=== PATIENT | male | born 1935 | race Caucasian/White ===

== ENCOUNTER 2017-10-26 09:41 | Inpatient (IN) | payer MEDICARE, OTHER ==
[2017-10-26] MEDS: ALBUTEROL 0.083% (NEB) 2.5 MG/3 ML AMP HHN (10:15)
[2017-10-26 10:20] LABS: AADO2 Arterial 495.1 mmHg (7.0-24.0); Allen Test ACCEPTAB; Arterial Base Excess 3.2 mmol/L (-3.0-3); Arterial COHb 0.4 % (0.0-3.0); Arterial Fraction of Oxyhgb 98.4 % (93.0-99.0); Arterial HCO3 27.8 mmol/L (22.0-26.0); Arterial MetHb 0.2 % (0.0-1.5); Arterial pCO2 42.8 mmhg (35-45); MODE MASK - NRB; Site Left Radial
[2017-10-26] MEDS: SODIUM CHLORIDE 0.9% 1L BAG IV* (10:48)
[2017-10-26] MEDS: LEVOFLOXACIN 750MG/D5W (PMX) 150 ML IVPB (10:49)
[2017-10-26 10:54] LABS: WHITE BLOOD COUNT 13.6 10^3/ul (4.8-10.8)
[2017-10-26 10:54] LABS: HEMATOCRIT 35.2 % (42.0-52.0); HEMOGLOBIN 10.7 g/dl (14.0-18.0); MEAN CORPUSCULAR HEMOGLOBIN 25.9 pg (29.0-33.0); MEAN CORPUSCULAR HGB CONC 30.4 g/dl (32.0-37.0); MEAN CORPUSCULAR VOLUME 85.2 fl (82.0-101.0); PLATELET COUNT 349 10^3/UL (140-415); POSITIVE DIFF @See below; RED BLOOD COUNT 4.13 10^6/ul (4.70-6.10)
[2017-10-26 10:55] LABS: ADD MAN DIFF? YES
[2017-10-26 11:10] LABS: ALANINE AMINOTRANSFERASE 31 IU/L (13-69); ALBUMIN 3.6 g/dl (3.3-4.9); ALBUMIN/GLOBULIN RATIO 0.85; ALKALINE PHOSPHATASE 111 IU/L (42-121); ANION GAP 15 (8-16); ASPARTATE AMINO TRANSFERASE 25 IU/L (15-46); BILIRUBIN,INDIRECT 0.4 mg/dl (0-1.1); BILIRUBIN,TOTAL 0.4 mg/dl (0.2-1.3); BLOOD UREA NITROGEN 48 mg/dl (7-20); CALCIUM 9.2 mg/dl (8.4-10.2); CARBON DIOXIDE 30 mmol/L (21-31); CHLORIDE 103 mmol/L (97-110); CREATININE 1.12 mg/dl (0.61-1.24); GLUCOSE 124 mg/dl (70-220); POTASSIUM 4.7 mmol/L (3.5-5.1); SODIUM 143 mmol/L (135-144); TOTAL PROTEIN 7.8 g/dl (6.1-8.1)
[2017-10-26 11:26] LABS: TROPONIN-I < 0.012 ng/ml (0.00-0.12)
[2017-10-26 11:27] LABS: PROTIME 14.4 Sec (11.9-14.9); PT RATIO 1.1
[2017-10-26 11:28] LABS: PARTIAL THROMBOPLASTIN TIME 37.7 Sec (25.0-35.0)
[2017-10-26 11:28] LABS: LACTIC ACID 3.1 mmol/L (0.5-2.0)
[2017-10-26 11:32] LABS: ANISOCYTOSIS 1+ (0-0); BAND NEUTROPHILS #M 3.9 10^3/ul (0.0-0.6); BAND NEUTROPHILS % (M) 29 % (0-4); BASOPHIL #M 0.1 10^3/ul (0.0-0.0); BASOPHILS % (M) 1 % (0-2); EOSINOPHILS % (M) 2 % (0-7); LYMPHOCYTES #M 1.7 10^3/ul (0.8-2.9); LYMPHOCYTES % (M) 13 % (15-51); MICROCYTOSIS 1+ (0-0); MONOCYTES % (M) 8 % (0-11); PLATELET ESTIMATE NORMAL; POLYCHROMASIA 2+ (0-0); SEG NEUT #M 6.9 10^3/ul (1.6-7.5); SEGMENTED NEUTROPHILS (M) % 47 % (39-77); SMUDGE%M 11 % (0-0)
[2017-10-26 13:47] LABS: LACTIC ACID 3.5 mmol/L (0.5-2.0)
[2017-10-26] MEDS ORDERED: ALBUTEROL/IPRATROPIUM (NEB) 3 ML AMP HHN (14:00)
[2017-10-26] MEDS: METHYLPREDNISOLONE 125 MG INJ IV (14:29)
[2017-10-26 15:33] LABS: LACTIC ACID 4.1 mmol/L (0.5-2.0)
[2017-10-26] MEDS: SOD CHLORIDE 0.9% 1,000 ML IV (17:20)
[2017-10-26] MEDS ORDERED: NON-FORMULARY/PATIENT OWN MED (Melatonin 5 MG) PO (21:00)
[2017-10-26] MEDS: traZODone 50 MG TAB PO (21:57)
[2017-10-26] MEDS: MEROPENEM 500MG/50 ML (PMX) 50 ML IVPB (22:18)
[2017-10-27] MEDS: PANTOPRAZOLE (EC) 40 MG TAB PO (05:49)
[2017-10-27] MEDS: SOD CHLORIDE 0.9% 1,000 ML IV ×2 (05:50→17:45)
[2017-10-27] MEDS: MEROPENEM 500MG/50 ML (PMX) 50 ML IVPB ×3 (06:14→21:03)
[2017-10-27 07:20] LABS: ADD MAN DIFF? NO
[2017-10-27 07:28] LABS: BASOPHILS % 0.1 % (0.0-2.0); HEMATOCRIT 31.3 % (42.0-52.0); HEMOGLOBIN 9.6 g/dl (14.0-18.0); LYMPHOCYTES # 1.8 10^3/ul (0.8-2.9); LYMPHOCYTES % 17.6 % (15.0-51.0); MEAN CORPUSCULAR HEMOGLOBIN 26.1 pg (29.0-33.0); MEAN CORPUSCULAR HGB CONC 30.7 g/dl (32.0-37.0); MEAN CORPUSCULAR VOLUME 85.1 fl (82.0-101.0); MEAN PLATELET VOLUME 9.8 fl (7.4-10.4); MONOCYTE # 0.4 10^3/ul (0.3-0.9); MONOCYTES % 3.7 % (0.0-11.0); NEUTROPHIL # 8.1 10^3/ul (1.6-7.5); NEUTROPHILS % 78.2 % (39.0-77.0); PLATELET COUNT 339 10^3/UL (140-415); RED BLOOD COUNT 3.68 10^6/ul (4.70-6.10); RED CELL DISTRIBUTION WIDTH 18.6 % (11.5-14.5)
[2017-10-27 07:28] LABS: WHITE BLOOD COUNT 10.3 10^3/ul (4.8-10.8)
[2017-10-27 07:50] LABS: ANION GAP 15 (8-16); BLOOD UREA NITROGEN 35 mg/dl (7-20); CALCIUM 8.7 mg/dl (8.4-10.2); CARBON DIOXIDE 27 mmol/L (21-31); CHLORIDE 107 mmol/L (97-110); CREATININE 0.82 mg/dl (0.61-1.24); GLUCOSE 136 mg/dl (70-220); MAGNESIUM 2.1 mg/dl (1.7-2.5); PHOSPHORUS 4.1 mg/dl (2.5-4.9); POTASSIUM 4.8 mmol/L (3.5-5.1); SODIUM 144 mmol/L (135-144)
[2017-10-27] MEDS: POLYETHYLENE GLYCOL 17 GM PACKET PO (08:43)
[2017-10-27] MEDS: TRIAMCINOLONE ACET 0.1% 15 GM CR TOP (08:55)
[2017-10-27] MEDS: DULOXETINE 30 MG CAP DR PO (08:55)
[2017-10-27] MEDS ORDERED: LEVOFLOXACIN 750MG/D5W (PMX) 150 ML IVPB (09:00)
[2017-10-27 13:26] LABS: ADD UMIC NO; UR ASCORBIC ACID 40 mg/dL (NEGATIVE); UR BILIRUBIN (Dip) NEGATIVE (NEGATIVE); UR BLOOD (Dip) NEGATIVE (NEGATIVE); UR CLARITY CLEAR (CLEAR); UR COLOR YELLOW (YELLOW); UR GLUCOSE (Dip) NEGATIVE (NEGATIVE); UR KETONES (Dip) NEGATIVE (NEGATIVE); UR LEUKOCYTE ESTERASE (Dip) NEGATIVE Leu/ul (NEGATIVE); UR NITRITE (Dip) NEGATIVE (NEGATIVE); UR SPECIFIC GRAVITY (Dip) 1.018 (1.003-1.030); UR TOTAL PROTEIN (Dip) NEGATIVE (NEGATIVE); UR UROBILINOGEN (Dip) NEGATIVE (NEGATIVE)
[2017-10-27] MEDS: traZODone 50 MG TAB PO (21:01)
[2017-10-27] MEDS: ZOLPIDEM 5 MG TAB PO (22:45)
[2017-10-28] MEDS: PANTOPRAZOLE (EC) 40 MG TAB PO (05:45)
[2017-10-28] MEDS: MEROPENEM 500MG/50 ML (PMX) 50 ML IVPB ×3 (05:45→20:24)
[2017-10-28] MEDS: TRIAMCINOLONE ACET 0.1% 15 GM CR TOP (09:00)
[2017-10-28 09:28] LABS: ADD MAN DIFF? NO
[2017-10-28 09:37] LABS: BASOPHILS % 0.3 % (0.0-2.0); EOSINOPHILS # 0.1 10^3/ul (0.0-0.5); EOSINOPHILS % 0.8 % (0.0-7.0); HEMATOCRIT 30.1 % (42.0-52.0); HEMOGLOBIN 9.4 g/dl (14.0-18.0); LYMPHOCYTES # 2.2 10^3/ul (0.8-2.9); MEAN CORPUSCULAR HEMOGLOBIN 26.4 pg (29.0-33.0); MEAN CORPUSCULAR HGB CONC 31.2 g/dl (32.0-37.0); MEAN CORPUSCULAR VOLUME 84.6 fl (82.0-101.0); MEAN PLATELET VOLUME 10.2 fl (7.4-10.4); MONOCYTE # 0.7 10^3/ul (0.3-0.9); MONOCYTES % 5.8 % (0.0-11.0); NEUTROPHIL # 8.5 10^3/ul (1.6-7.5); NEUTROPHILS % 73.7 % (39.0-77.0); PLATELET COUNT 310 10^3/UL (140-415); RED BLOOD COUNT 3.56 10^6/ul (4.70-6.10); RED CELL DISTRIBUTION WIDTH 18.6 % (11.5-14.5)
[2017-10-28 09:37] LABS: WHITE BLOOD COUNT 11.5 10^3/ul (4.8-10.8)
[2017-10-28 09:53] LABS: ALANINE AMINOTRANSFERASE 38 IU/L (13-69); ALKALINE PHOSPHATASE 88 IU/L (42-121); ANION GAP 10 (8-16); ASPARTATE AMINO TRANSFERASE 27 IU/L (15-46); BILIRUBIN,INDIRECT 0.3 mg/dl (0-1.1); BILIRUBIN,TOTAL 0.3 mg/dl (0.2-1.3); BLOOD UREA NITROGEN 32 mg/dl (7-20); CALCIUM 8.5 mg/dl (8.4-10.2); CARBON DIOXIDE 28 mmol/L (21-31); CHLORIDE 108 mmol/L (97-110); CREATININE 0.92 mg/dl (0.61-1.24); GLUCOSE 85 mg/dl (70-220); POTASSIUM 4.3 mmol/L (3.5-5.1); SODIUM 142 mmol/L (135-144)
[2017-10-28 09:54] LABS: ALBUMIN 3.2 g/dl (3.3-4.9); ALBUMIN/GLOBULIN RATIO 0.86; CHOL/HDL RATIO 3.8 RATIO; CHOLESTEROL 148 mg/dl (100-200); HDL CHOLESTEROL 38 mg/dl (31-75); LDL CHOLESTEROL,CALCULATED 96 mg/dl; TOTAL PROTEIN 6.9 g/dl (6.1-8.1); TRIGLYCERIDES 70 mg/dl (0-149)
[2017-10-28] MEDS: POLYETHYLENE GLYCOL 17 GM PACKET PO (10:02)
[2017-10-28] MEDS: DULOXETINE 30 MG CAP DR PO (10:19)
[2017-10-28 12:30] LABS: PHOSPHORUS 3.1 mg/dl (2.5-4.9)
[2017-10-28 12:30] LABS: MAGNESIUM 1.9 mg/dl (1.7-2.5)
[2017-10-28] MEDS: FLUCONAZOLE 200 MG TAB PO (13:46)
[2017-10-28] MEDS ORDERED: BENZONATATE 100 MG CAP PO (14:00)
[2017-10-28] MEDS ORDERED: ONDANSETRON 4 MG INJ (15:05)
[2017-10-28] MEDS: ONDANSETRON 4 MG INJ IV (15:09)
[2017-10-28] MEDS: ATORVASTATIN 10 MG TAB PO (20:22)
[2017-10-28] MEDS: traZODone 50 MG TAB PO (20:22)
[2017-10-28] MEDS: LORAZEPAM 2 MG INJ IV ×2 (20:23→23:21)
[2017-10-29] MEDS: MEROPENEM 500MG/50 ML (PMX) 50 ML IVPB ×3 (05:47→21:22)
[2017-10-29] MEDS: PANTOPRAZOLE (EC) 40 MG TAB PO (05:47)
[2017-10-29 07:22] LABS: ADD MAN DIFF? NO
[2017-10-29 07:25] LABS: WHITE BLOOD COUNT 8.6 10^3/ul (4.8-10.8)
[2017-10-29 07:25] LABS: BASOPHILS % 0.3 % (0.0-2.0); EOSINOPHILS # 0.2 10^3/ul (0.0-0.5); EOSINOPHILS % 2.2 % (0.0-7.0); HEMATOCRIT 33.1 % (42.0-52.0); HEMOGLOBIN 10.5 g/dl (14.0-18.0); LYMPHOCYTES # 2.3 10^3/ul (0.8-2.9); LYMPHOCYTES % 26.4 % (15.0-51.0); MEAN CORPUSCULAR HEMOGLOBIN 26.4 pg (29.0-33.0); MEAN CORPUSCULAR HGB CONC 31.7 g/dl (32.0-37.0); MEAN CORPUSCULAR VOLUME 83.2 fl (82.0-101.0); MEAN PLATELET VOLUME 9.5 fl (7.4-10.4); MONOCYTE # 0.7 10^3/ul (0.3-0.9); MONOCYTES % 7.8 % (0.0-11.0); NEUTROPHIL # 5.4 10^3/ul (1.6-7.5); PLATELET COUNT 315 10^3/UL (140-415); RED BLOOD COUNT 3.98 10^6/ul (4.70-6.10); RED CELL DISTRIBUTION WIDTH 18.2 % (11.5-14.5)
[2017-10-29 07:47] LABS: ANION GAP 10 (8-16); BLOOD UREA NITROGEN 21 mg/dl (7-20); CALCIUM 8.9 mg/dl (8.4-10.2); CARBON DIOXIDE 30 mmol/L (21-31); CHLORIDE 108 mmol/L (97-110); CREATININE 0.86 mg/dl (0.61-1.24); GLUCOSE 91 mg/dl (70-220); PHOSPHORUS 3.8 mg/dl (2.5-4.9); SODIUM 144 mmol/L (135-144)
[2017-10-29] MEDS: DULOXETINE 30 MG CAP DR PO (08:48)
[2017-10-29] MEDS: POLYETHYLENE GLYCOL 17 GM PACKET PO (08:49)
[2017-10-29] MEDS: TRIAMCINOLONE ACET 0.1% 15 GM CR TOP (11:02)
[2017-10-29] MEDS: traZODone 50 MG TAB PO (20:24)
[2017-10-29] MEDS: ATORVASTATIN 10 MG TAB PO (20:24)
[2017-10-30] MEDS: PANTOPRAZOLE (EC) 40 MG TAB PO (05:12)
[2017-10-30] MEDS: MEROPENEM 500MG/50 ML (PMX) 50 ML IVPB ×3 (05:12→21:38)
[2017-10-30] MEDS: TRIAMCINOLONE ACET 0.1% 15 GM CR TOP (08:55)
[2017-10-30] MEDS: POLYETHYLENE GLYCOL 17 GM PACKET PO (08:55)
[2017-10-30] MEDS: FLUCONAZOLE 100 MG TAB PO (08:55)
[2017-10-30] MEDS: DULOXETINE 30 MG CAP DR PO (08:55)
[2017-10-30] MEDS: traZODone 50 MG TAB PO (20:38)
[2017-10-30] MEDS: ATORVASTATIN 10 MG TAB PO (20:39)
[2017-10-31] MEDS: MEROPENEM 500MG/50 ML (PMX) 50 ML IVPB ×2 (05:14→13:35)
[2017-10-31] MEDS: PANTOPRAZOLE (EC) 40 MG TAB PO (05:14)
[2017-10-31] MEDS: TRIAMCINOLONE ACET 0.1% 15 GM CR TOP (09:04)
[2017-10-31] MEDS: POLYETHYLENE GLYCOL 17 GM PACKET PO (09:05)
[2017-10-31] MEDS: FLUCONAZOLE 100 MG TAB PO (09:05)
[2017-10-31] MEDS: DULOXETINE 30 MG CAP DR PO (09:05)
== END 2017-10-31 16:00 | disposition home health service (06) | DRG 871 ==
LOC: TEL 18:29 → E/R 09:41 → TEL 11:32
DX: A41.9 Sepsis, unspecified organism (principal); J69.0 Pneumonitis due to inhalation of food and vomit; J96.01 Acute respiratory failure with hypoxia; N17.9 Acute kidney failure, unspecified; G92 Toxic encephalopathy; E87.2 Acidosis; L89.894 Pressure ulcer of other site, stage 4; B37.49 Other urogenital candidiasis; E44.0 Moderate protein-calorie malnutrition; Z68.1 Body mass index [BMI] 19.9 or less, adult; J44.1 Chronic obstructive pulmonary disease with (acute) exacerbation; J44.0 Chronic obstructive pulmonary disease with (acute) lower respiratory infection; R65.20 Severe sepsis without septic shock; J20.9 Acute bronchitis, unspecified; F32.9 Major depressive disorder, single episode, unspecified
CPT/HCPCS: 36415; 36600; 71045; 71250; 80048; 80053; 80061; 81003; 82803; 83605; 83735; 84100; 84484; 85025; 85610; 85730; 86850; 86900; 86901; 87040; 87086; 87400; 93005; 93306; 94664; 96374; 96375; 97163; 99291-25

== ENCOUNTER 2018-01-09 12:43 | Emergency (ER) | payer MEDICARE, OTHER ==
[2018-01-09 15:24] LABS: URINE BLOOD (Dip) POC Trace-intact (NEGATIVE); URINE GLUCOSE (Dip) POC Negative (NEGATIVE); URINE KETONES (Dip) POC 1+ (NEGATIVE); URINE LEUKOCYTE EST (Dip) POC Negative (NEGATIVE); URINE NITRITE (Dip) POC Negative (NEGATIVE); URINE TOTAL PROTEIN POC Trace (NEGATIVE)
[2018-01-09 15:42] LABS: ADD MAN DIFF? NO
[2018-01-09 15:46] LABS: WHITE BLOOD COUNT 12.7 10^3/ul (4.8-10.8)
[2018-01-09 15:46] LABS: BASOPHIL # 0.1 10^3/ul (0.0-0.1); BASOPHILS % 0.5 % (0.0-2.0); EOSINOPHILS # 0.1 10^3/ul (0.0-0.5); EOSINOPHILS % 0.5 % (0.0-7.0); HEMATOCRIT 35.7 % (42.0-52.0); HEMOGLOBIN 11.4 g/dl (14.0-18.0); LYMPHOCYTES # 2.4 10^3/ul (0.8-2.9); LYMPHOCYTES % 18.6 % (15.0-51.0); MEAN CORPUSCULAR HGB CONC 31.9 g/dl (32.0-37.0); MEAN CORPUSCULAR VOLUME 84.6 fl (82.0-101.0); MEAN PLATELET VOLUME 9.9 fl (7.4-10.4); MONOCYTE # 0.7 10^3/ul (0.3-0.9); MONOCYTES % 5.4 % (0.0-11.0); NEUTROPHIL # 9.5 10^3/ul (1.6-7.5); NEUTROPHILS % 74.5 % (39.0-77.0); PLATELET COUNT 416 10^3/UL (140-415); RED BLOOD COUNT 4.22 10^6/ul (4.70-6.10); RED CELL DISTRIBUTION WIDTH 17.2 % (11.5-14.5)
[2018-01-09 16:02] LABS: ALANINE AMINOTRANSFERASE 38 IU/L (13-69); ALBUMIN/GLOBULIN RATIO 0.95; ALKALINE PHOSPHATASE 110 IU/L (42-121); ANION GAP 18 (8-16); ASPARTATE AMINO TRANSFERASE 61 IU/L (15-46); BILIRUBIN,INDIRECT 0.2 mg/dl (0-1.1); BILIRUBIN,TOTAL 0.2 mg/dl (0.2-1.3); BLOOD UREA NITROGEN 43 mg/dl (7-20); CALCIUM 9.5 mg/dl (8.4-10.2); CARBON DIOXIDE 28 mmol/L (21-31); CHLORIDE 104 mmol/L (97-110); CREATININE 1.13 mg/dl (0.61-1.24); GLUCOSE 108 mg/dl (70-220); LIPASE 20 U/L (23-300); POTASSIUM 4.9 mmol/L (3.5-5.1); SODIUM 145 mmol/L (135-144); TOTAL PROTEIN 8.2 g/dl (6.1-8.1)
[2018-01-09] MEDS: SOD CHLORIDE 0.9% 1,000 ML IV (17:19)
== END 2018-01-09 19:02 | disposition home or self-care (01) ==
LOC: E/R 19:02
DX: R11.10 Vomiting, unspecified (principal); R40.2142 Coma scale, eyes open, spontaneous, at arrival to emergency department; E86.0 Dehydration; D64.9 Anemia, unspecified; R40.2252 Coma scale, best verbal response, oriented, at arrival to emergency department; R40.2362 Coma scale, best motor response, obeys commands, at arrival to emergency department; I25.10 Atherosclerotic heart disease of native coronary artery without angina pectoris
CPT/HCPCS: 36415; 74176; 80053; 81003; 83690; 85025; 99285-25

== ENCOUNTER 2018-03-05 20:49 | Inpatient (IN) | payer MEDICARE, OTHER ==
[2018-03-05 23:06] LABS: WHITE BLOOD COUNT 12.8 10^3/ul (4.8-10.8)
[2018-03-05 23:06] LABS: HEMATOCRIT 32.4 % (42.0-52.0); HEMOGLOBIN 10.1 g/dl (14.0-18.0); MEAN CORPUSCULAR HEMOGLOBIN 26.9 pg (29.0-33.0); MEAN CORPUSCULAR HGB CONC 31.2 g/dl (32.0-37.0); MEAN CORPUSCULAR VOLUME 86.4 fl (82.0-101.0); PLATELET COUNT 318 10^3/UL (140-415); POSITIVE DIFF @See below; RED BLOOD COUNT 3.75 10^6/ul (4.70-6.10); RED CELL DISTRIBUTION WIDTH 18.4 % (11.5-14.5)
[2018-03-05 23:17] LABS: ADD MAN DIFF? YES
[2018-03-05 23:28] LABS: LACTIC ACID 0.8 mmol/L (0.5-2.0)
[2018-03-05 23:29] LABS: ALANINE AMINOTRANSFERASE 23 IU/L (13-69); ALBUMIN 3.2 g/dl (3.3-4.9); ALBUMIN/GLOBULIN RATIO 0.91; ALKALINE PHOSPHATASE 89 IU/L (42-121); ANION GAP 10 (8-16); ASPARTATE AMINO TRANSFERASE 13 IU/L (15-46); BILIRUBIN,INDIRECT 0.2 mg/dl (0-1.1); BILIRUBIN,TOTAL 0.2 mg/dl (0.2-1.3); BLOOD UREA NITROGEN 41 mg/dl (7-20); CALCIUM 9.1 mg/dl (8.4-10.2); CARBON DIOXIDE 29 mmol/L (21-31); CHLORIDE 108 mmol/L (97-110); CREATININE 0.94 mg/dl (0.61-1.24); GLUCOSE 134 mg/dl (70-220); POTASSIUM 3.8 mmol/L (3.5-5.1); SODIUM 143 mmol/L (135-144); TOTAL PROTEIN 6.7 g/dl (6.1-8.1)
[2018-03-05 23:32] LABS: INR 1.12; PARTIAL THROMBOPLASTIN TIME 40.2 Sec (25.0-35.0); PROTIME 14.6 Sec (11.9-14.9); PT RATIO 1.1
[2018-03-05] MEDS: SODIUM CHLORIDE 0.9% 1L BAG IV* (23:47)
[2018-03-05] MEDS: LEVOFLOXACIN 750MG/D5W (PMX) 150 ML IVPB (23:47)
[2018-03-05 23:51] LABS: TROPONIN-I < 0.012 ng/ml (0.000-0.120)
[2018-03-05 23:55] LABS: ANISOCYTOSIS 1+ (0-0); BAND NEUTROPHILS #M 1.6 10^3/ul (0.0-0.6); BAND NEUTROPHILS % (M) 13 % (0-4); BASOPHIL #M 0.2 10^3/ul (0.0-0.0); BASOPHILS % (M) 2 % (0-2); GIANT THROMBO% (M) 1 % (0-0); LYMPHOCYTES #M 1.5 10^3/ul (0.8-2.9); LYMPHOCYTES % (M) 12 % (15-51); MICROCYTOSIS 1+ (0-0); PLATELET ESTIMATE NORMAL; POIKILOCYTOSIS 1+ (0-0); POLYCHROMASIA 3+ (0-0); SEG NEUT #M 9.5 10^3/ul (1.6-7.5); SEGMENTED NEUTROPHILS (M) % 73 % (39-77); SMUDGE%M 6 % (0-0)
[2018-03-06 00:06] LABS: ADD UMIC NO; UR AMORPHOUS CRYSTAL FEW /HPF (NONE SEEN); UR ASCORBIC ACID NEGATIVE (NEGATIVE); UR BACTERIA FEW /HPF (NONE SEEN); UR BILIRUBIN (Dip) NEGATIVE (NEGATIVE); UR BLOOD (Dip) NEGATIVE (NEGATIVE); UR CLARITY SLIGHTLY CLOUDY (CLEAR); UR COLOR YELLOW (YELLOW); UR GLUCOSE (Dip) NEGATIVE (NEGATIVE); UR KETONES (Dip) NEGATIVE (NEGATIVE); UR LEUKOCYTE ESTERASE (Dip) NEGATIVE Leu/ul (NEGATIVE); UR MUCUS FEW /HPF (NONE SEEN); UR NITRITE (Dip) NEGATIVE (NEGATIVE); UR RBC 3 /HPF (0-5); UR TOTAL PROTEIN (Dip) NEGATIVE (NEGATIVE); UR UROBILINOGEN (Dip) NEGATIVE (NEGATIVE); UR WBC 3 /HPF (0-5)
[2018-03-06] MEDS: VANCOMYCIN 1 GM (PMX) 250 ML IVPB (01:06)
[2018-03-06 01:27] LABS: LACTIC ACID 0.8 mmol/L (0.5-2.0)
[2018-03-06 04:14] LABS: LACTIC ACID 0.8 mmol/L (0.5-2.0)
[2018-03-06] MEDS ORDERED: ONDANSETRON (ODT) 4 MG TAB ODT (04:30)
[2018-03-06] MEDS ORDERED: PENDING SANTYL ORDER FOR WOUND CARE XX (05:00)
[2018-03-06] MEDS: PANTOPRAZOLE (EC) 40 MG TAB PO (06:14)
[2018-03-06] MEDS ORDERED: VANCOMYCIN IV PER PHARMACY XX (08:00)
[2018-03-06] MEDS: traZODone 50 MG TAB PO ×2 (09:00→21:02)
[2018-03-06] MEDS: DULOXETINE 30 MG CAP DR PO ×2 (09:00→21:02)
[2018-03-06] MEDS: TRIMETHOPRIM/SULFAMETHOX (DS) TAB PO (09:00)
[2018-03-06] MEDS: PREGABALIN 50 MG CAP PO ×2 (09:00→21:02)
[2018-03-06] MEDS: LEVOFLOXACIN 750MG/D5W (PMX) 150 ML IVPB (09:59)
[2018-03-06] MEDS: D5W-0.45 NACL + KCL 10 MEQ 1,000 ML IV (09:59)
[2018-03-06] MEDS: AZTREONAM 1 GM/NS (PMX) 50 ML IVPB ×2 (13:47→23:02)
[2018-03-06] MEDS: LORAZEPAM 0.5 MG TAB PO (16:01)
[2018-03-07] MEDS: VANCOMYCIN 1 GM 250 ML IVPB (00:40)
[2018-03-07] MEDS: LORAZEPAM 0.5 MG TAB PO (00:42)
[2018-03-07] MEDS: D5W-0.45 NACL + KCL 10 MEQ 1,000 ML IV (05:00)
[2018-03-07] MEDS: AZTREONAM 1 GM/NS (PMX) 50 ML IVPB (05:45)
[2018-03-07] MEDS: PANTOPRAZOLE 40 MG INJ IV (05:46)
[2018-03-07 05:51] LABS: ADD MAN DIFF? NO
[2018-03-07 05:59] LABS: WHITE BLOOD COUNT 7.2 10^3/ul (4.8-10.8)
[2018-03-07 05:59] LABS: BASOPHILS % 0.4 % (0.0-2.0); EOSINOPHILS % 2.4 % (0.0-7.0); HEMATOCRIT 30.4 % (42.0-52.0); HEMOGLOBIN 9.5 g/dl (14.0-18.0); LYMPHOCYTES % 18.8 % (15.0-51.0); MEAN CORPUSCULAR HEMOGLOBIN 27.1 pg (29.0-33.0); MEAN CORPUSCULAR HGB CONC 31.3 g/dl (32.0-37.0); MEAN CORPUSCULAR VOLUME 86.9 fl (82.0-101.0); MEAN PLATELET VOLUME 10.3 fl (7.4-10.4); MONOCYTES % 6.4 % (0.0-11.0); NEUTROPHILS % 71.7 % (39.0-77.0); PLATELET COUNT 272 10^3/UL (140-415); RED CELL DISTRIBUTION WIDTH 18.1 % (11.5-14.5)
[2018-03-07 06:00] LABS: EOSINOPHILS # 0.2 10^3/ul (0.0-0.5); LYMPHOCYTES # 1.4 10^3/ul (0.8-2.9); MONOCYTE # 0.5 10^3/ul (0.3-0.9); NEUTROPHIL # 5.1 10^3/ul (1.6-7.5)
[2018-03-07 06:27] LABS: ANION GAP 10 (8-16); BLOOD UREA NITROGEN 24 mg/dl (7-20); CALCIUM 8.4 mg/dl (8.4-10.2); CARBON DIOXIDE 29 mmol/L (21-31); CHLORIDE 108 mmol/L (97-110); CREATININE 0.79 mg/dl (0.61-1.24); GLUCOSE 102 mg/dl (70-220); MAGNESIUM 1.7 mg/dl (1.7-2.5); PHOSPHORUS 3.6 mg/dl (2.5-4.9); POTASSIUM 3.8 mmol/L (3.5-5.1); SODIUM 143 mmol/L (135-144)
[2018-03-07] MEDS: traZODone 50 MG TAB PO ×2 (08:24→21:35)
[2018-03-07] MEDS: DULOXETINE 30 MG CAP DR PO ×2 (08:24→21:35)
[2018-03-07] MEDS: PREGABALIN 50 MG CAP PO ×2 (08:24→21:35)
[2018-03-07] MEDS: LEVOFLOXACIN 750MG/D5W (PMX) 150 ML IVPB (08:25)
[2018-03-07] MEDS: LINACLOTIDE 72 MCG XX ×2 (10:00→21:50)
[2018-03-07] MEDS: [UNRECOGNIZED DRUG - OTHER] XX ×2 (10:00→21:50)
[2018-03-07] MEDS: FLUCONAZOLE 100 MG/NS (PMX) 50 ML IVPB (16:21)
[2018-03-07] MEDS: MEROPENEM 500MG/50 ML (PMX) 50 ML IVPB (21:36)
[2018-03-08] MEDS: VANCOMYCIN 1 GM 250 ML IVPB (00:06)
[2018-03-08] MEDS: D5W-0.45 NACL + KCL 10 MEQ 1,000 ML IV ×2 (01:00→08:24)
[2018-03-08] MEDS: [UNRECOGNIZED DRUG - OTHER] XX ×2 (01:02→10:00)
[2018-03-08] MEDS: LINACLOTIDE 72 MCG XX ×2 (01:02→10:00)
[2018-03-08 06:06] LABS: ADD MAN DIFF? NO
[2018-03-08 06:08] LABS: WHITE BLOOD COUNT 8.5 10^3/ul (4.8-10.8)
[2018-03-08 06:08] LABS: BASOPHILS % 0.5 % (0.0-2.0); EOSINOPHILS # 0.2 10^3/ul (0.0-0.5); EOSINOPHILS % 2.7 % (0.0-7.0); HEMATOCRIT 33.4 % (42.0-52.0); HEMOGLOBIN 10.6 g/dl (14.0-18.0); LYMPHOCYTES # 1.7 10^3/ul (0.8-2.9); LYMPHOCYTES % 19.6 % (15.0-51.0); MEAN CORPUSCULAR HGB CONC 31.7 g/dl (32.0-37.0); MEAN CORPUSCULAR VOLUME 85.2 fl (82.0-101.0); MONOCYTE # 0.5 10^3/ul (0.3-0.9); MONOCYTES % 5.9 % (0.0-11.0); NEUTROPHIL # 6.1 10^3/ul (1.6-7.5); NEUTROPHILS % 70.7 % (39.0-77.0); PLATELET COUNT 323 10^3/UL (140-415); RED BLOOD COUNT 3.92 10^6/ul (4.70-6.10); RED CELL DISTRIBUTION WIDTH 17.7 % (11.5-14.5)
[2018-03-08] MEDS: PANTOPRAZOLE 40 MG INJ IV (06:21)
[2018-03-08 06:58] LABS: ANION GAP 9 (8-16); BLOOD UREA NITROGEN 19 mg/dl (7-20); CALCIUM 8.4 mg/dl (8.4-10.2); CARBON DIOXIDE 27 mmol/L (21-31); CHLORIDE 108 mmol/L (97-110); CREATININE 0.92 mg/dl (0.61-1.24); GLUCOSE 95 mg/dl (70-220); MAGNESIUM 1.8 mg/dl (1.7-2.5); POTASSIUM 3.6 mmol/L (3.5-5.1); SODIUM 140 mmol/L (135-144)
[2018-03-08] MEDS ORDERED: BARIUM SULFATE 135 ML (E-Z HD) PO (07:48)
[2018-03-08] MEDS: MEROPENEM 500MG/50 ML (PMX) 50 ML IVPB ×2 (08:51→20:27)
[2018-03-08] MEDS: PREGABALIN 50 MG CAP PO ×2 (08:51→20:27)
[2018-03-08] MEDS: DULOXETINE 30 MG CAP DR PO ×2 (08:51→20:27)
[2018-03-08] MEDS: traZODone 50 MG TAB PO ×2 (08:51→20:27)
[2018-03-08] MEDS ORDERED: FLUCONAZOLE 100 MG/NS (PMX) 50 ML IVPB (09:00)
[2018-03-08] MEDS: FLUCONAZOLE 100 MG/NS (PMX) 50 ML IVPB (16:53)
[2018-03-09 00:03] LABS: VANCOMYCIN,TROUGH 9.2 ug/ml (10.0-20.0)
[2018-03-09] MEDS: VANCOMYCIN 1 GM 250 ML IVPB (00:08)
[2018-03-09] MEDS: PANTOPRAZOLE 40 MG INJ IV (05:50)
[2018-03-09] MEDS: MEROPENEM 500MG/50 ML (PMX) 50 ML IVPB ×2 (09:13→21:29)
[2018-03-09] MEDS: DULOXETINE 30 MG CAP DR PO ×2 (09:14→21:30)
[2018-03-09] MEDS: PREGABALIN 50 MG CAP PO ×2 (09:14→21:30)
[2018-03-09] MEDS: traZODone 50 MG TAB PO ×2 (09:14→21:30)
[2018-03-09] MEDS: FLUCONAZOLE 100 MG/NS (PMX) 50 ML IVPB (16:59)
[2018-03-09] MEDS: D5W-0.45 NACL + KCL 10 MEQ 1,000 ML IV (18:30)
[2018-03-09] MEDS: SENNA TAB PO (21:30)
[2018-03-09] MEDS: VANCOMYCIN 1.25 GM in SOD CHLORIDE 0.9% 250 ML IVPB (23:54)
[2018-03-10] MEDS: PANTOPRAZOLE 40 MG INJ IV (05:27)
[2018-03-10 06:26] LABS: ADD MAN DIFF? NO
[2018-03-10 06:36] LABS: WHITE BLOOD COUNT 8.5 10^3/ul (4.8-10.8)
[2018-03-10 06:36] LABS: BASOPHIL # 0.1 10^3/ul (0.0-0.1); BASOPHILS % 0.7 % (0.0-2.0); EOSINOPHILS # 0.3 10^3/ul (0.0-0.5); EOSINOPHILS % 3.3 % (0.0-7.0); HEMATOCRIT 34.3 % (42.0-52.0); HEMOGLOBIN 10.9 g/dl (14.0-18.0); LYMPHOCYTES # 2.2 10^3/ul (0.8-2.9); LYMPHOCYTES % 25.7 % (15.0-51.0); MEAN CORPUSCULAR HGB CONC 31.8 g/dl (32.0-37.0); MEAN CORPUSCULAR VOLUME 84.9 fl (82.0-101.0); MEAN PLATELET VOLUME 9.5 fl (7.4-10.4); MONOCYTE # 0.5 10^3/ul (0.3-0.9); NEUTROPHIL # 5.4 10^3/ul (1.6-7.5); NEUTROPHILS % 63.7 % (39.0-77.0); PLATELET COUNT 337 10^3/UL (140-415); RED BLOOD COUNT 4.04 10^6/ul (4.70-6.10); RED CELL DISTRIBUTION WIDTH 17.7 % (11.5-14.5)
[2018-03-10 07:00] LABS: ANION GAP 9 (8-16); BLOOD UREA NITROGEN 26 mg/dl (7-20); CALCIUM 8.5 mg/dl (8.4-10.2); CARBON DIOXIDE 31 mmol/L (21-31); CHLORIDE 110 mmol/L (97-110); CREATININE 0.86 mg/dl (0.61-1.24); GLUCOSE 102 mg/dl (70-220); PHOSPHORUS 3.8 mg/dl (2.5-4.9); SODIUM 146 mmol/L (135-144)
[2018-03-10] MEDS: MEROPENEM 500MG/50 ML (PMX) 50 ML IVPB (09:15)
[2018-03-10] MEDS: DULOXETINE 30 MG CAP DR PO (09:16)
[2018-03-10] MEDS: SENNA TAB PO (09:16)
[2018-03-10] MEDS: traZODone 50 MG TAB PO (09:16)
[2018-03-10] MEDS: PREGABALIN 50 MG CAP PO (09:16)
[2018-03-10] MEDS: FLUCONAZOLE 100 MG/NS (PMX) 50 ML IVPB (16:21)
== END 2018-03-10 18:00 | disposition home health service (06) | DRG 871 ==
LOC: E/R 20:49 → PP2 03-06 02:46
DX: A41.9 Sepsis, unspecified organism (principal); L89.224 Pressure ulcer of left hip, stage 4; J18.9 Pneumonia, unspecified organism; J96.01 Acute respiratory failure with hypoxia; G92 Toxic encephalopathy; N39.0 Urinary tract infection, site not specified; N17.9 Acute kidney failure, unspecified; K50.90 Crohn's disease, unspecified, without complications; E87.0 Hyperosmolality and hypernatremia; I48.2 Chronic atrial fibrillation; F03.90 Unspecified dementia, unspecified severity, without behavioral disturbance, psychotic disturbance, mood disturbance, and anxiety; R13.10 Dysphagia, unspecified; D64.9 Anemia, unspecified; I25.10 Atherosclerotic heart disease of native coronary artery without angina pectoris; F32.9 Major depressive disorder, single episode, unspecified; F41.9 Anxiety disorder, unspecified; Z87.891 Personal history of nicotine dependence
CPT/HCPCS: 70450; 71045; 74230; 80048; 80053; 80202; 81001; 81003; 83605; 83735; 84100; 84484; 85025; 85610; 85730; 87040; 87045; 87086; 92526; 92610; 92611; 93005; 96374; 96375; 97162; 99285-25; G0378

== ENCOUNTER 2018-04-07 21:07 | Inpatient (IN) | payer MEDICARE, OTHER ==
[2018-04-07 21:42] LABS: ADD MAN DIFF? NO
[2018-04-07 21:48] LABS: AADO2 Arterial 87.7 mmHg (7.0-24.0); Allen Test ACCEPTAB; Arterial Base Excess 3.5 mmol/L (-3.0-3); Arterial Blood Gas Oxygen Sat 95.7 mmHG (95.0-100.0); Arterial COHb 0.3 % (0.0-3.0); Arterial Fraction of Oxyhgb 95.2 % (93.0-99.0); Arterial MetHb 0.2 % (0.0-1.5); Arterial Total Hemglobin 10.9 g/dl (12.0-18.0); Arterial pCO2 42.1 mmhg (35-45); BASOPHILS % 0.2 % (0.0-2.0); EOSINOPHILS # 0.2 10^3/ul (0.0-0.5); EOSINOPHILS % 2.5 % (0.0-7.0); HEMATOCRIT 32.4 % (42.0-52.0); HEMOGLOBIN 10.3 g/dl (14.0-18.0); LYMPHOCYTES # 1.4 10^3/ul (0.8-2.9); LYMPHOCYTES % 14.9 % (15.0-51.0); MEAN CORPUSCULAR HEMOGLOBIN 27.7 pg (29.0-33.0); MEAN CORPUSCULAR HGB CONC 31.8 g/dl (32.0-37.0); MEAN CORPUSCULAR VOLUME 87.1 fl (82.0-101.0); MEAN PLATELET VOLUME 9.5 fl (7.4-10.4); MODE NASAL CANNULA; MONOCYTE # 0.4 10^3/ul (0.3-0.9); MONOCYTES % 4.8 % (0.0-11.0); NEUTROPHILS % 77.3 % (39.0-77.0); PLATELET COUNT 220 10^3/UL (140-415); RED BLOOD COUNT 3.72 10^6/ul (4.70-6.10); RED CELL DISTRIBUTION WIDTH 19.3 % (11.5-14.5); Site Left Radial
[2018-04-07 21:48] LABS: WHITE BLOOD COUNT 9.1 10^3/ul (4.8-10.8)
[2018-04-07] MEDS: ONDANSETRON 4 MG INJ IV (21:51)
[2018-04-07] MEDS: SOD CHLORIDE 0.9% 1,000 ML IV (21:51)
[2018-04-07 22:08] LABS: LACTIC ACID 1.5 mmol/L (0.5-2.0)
[2018-04-07 22:09] LABS: ALANINE AMINOTRANSFERASE 15 IU/L (13-69); ALBUMIN 3.3 g/dl (3.3-4.9); ALBUMIN/GLOBULIN RATIO 0.89; ALKALINE PHOSPHATASE 89 IU/L (42-121); ANION GAP 10 (8-16); ASPARTATE AMINO TRANSFERASE 14 IU/L (15-46); BILIRUBIN,INDIRECT 0.3 mg/dl (0-1.1); BILIRUBIN,TOTAL 0.3 mg/dl (0.2-1.3); BLOOD UREA NITROGEN 38 mg/dl (7-20); CALCIUM 8.5 mg/dl (8.4-10.2); CARBON DIOXIDE 28 mmol/L (21-31); CHLORIDE 107 mmol/L (97-110); CREATININE 0.97 mg/dl (0.61-1.24); GLUCOSE 121 mg/dl (70-220); INR 1.03; POTASSIUM 4.2 mmol/L (3.5-5.1); PROTIME 13.6 Sec (11.9-14.9); PT RATIO 1.1; SODIUM 141 mmol/L (135-144)
[2018-04-07 22:10] LABS: LIPASE < 10 U/L (23-300)
[2018-04-07 22:20] LABS: TROPONIN-I 0.013 ng/ml (0.000-0.120)
[2018-04-07] MEDS: IPRATROPIUM (NEB) 0.5 MG/2.5 ML AMP NEB (22:39)
[2018-04-07] MEDS: LEVALBUTEROL (NEB) 1.25 MG/0.5 ML AMP INH (22:39)
[2018-04-07] MEDS: SODIUM CHLORIDE 0.9% 1L BAG IV* (23:55)
[2018-04-07] MEDS ORDERED: IBUPROFEN 200 MG TAB (23:55)
[2018-04-07] MEDS: LEVOFLOXACIN 750MG/D5W (PMX) 150 ML IVPB (23:56)
[2018-04-08 01:06] LABS: LACTIC ACID 1.2 mmol/L (0.5-2.0)
[2018-04-08] MEDS: MEROPENEM 1 GM/50ML(PMX) 50 ML IVPB (01:44)
[2018-04-08] MEDS: VANCOMYCIN 1 GM (PMX) 250 ML IVPB (02:15)
[2018-04-08 03:50] LABS: URINE PH (Dip) POC 5.5 (5.0-8.5)
[2018-04-08 03:50] LABS: URINE BLOOD (Dip) POC Negative (NEGATIVE); URINE GLUCOSE (Dip) POC Negative (NEGATIVE); URINE KETONES (Dip) POC Negative (NEGATIVE); URINE LEUKOCYTE EST (Dip) POC Negative (NEGATIVE); URINE NITRITE (Dip) POC Negative (NEGATIVE); URINE TOTAL PROTEIN POC Negative (NEGATIVE)
[2018-04-08 04:10] LABS: ADD UMIC NO; UR ASCORBIC ACID NEGATIVE (NEGATIVE); UR BILIRUBIN (Dip) NEGATIVE (NEGATIVE); UR BLOOD (Dip) NEGATIVE (NEGATIVE); UR CLARITY CLEAR (CLEAR); UR COLOR YELLOW (YELLOW); UR GLUCOSE (Dip) NEGATIVE (NEGATIVE); UR KETONES (Dip) NEGATIVE (NEGATIVE); UR LEUKOCYTE ESTERASE (Dip) NEGATIVE Leu/ul (NEGATIVE); UR NITRITE (Dip) NEGATIVE (NEGATIVE); UR SPECIFIC GRAVITY (Dip) 1.017 (1.003-1.030); UR TOTAL PROTEIN (Dip) NEGATIVE (NEGATIVE); UR UROBILINOGEN (Dip) NEGATIVE (NEGATIVE)
[2018-04-08 05:57] LABS: LACTIC ACID 1.5 mmol/L (0.5-2.0)
[2018-04-08] MEDS ORDERED: PENDING SANTYL ORDER FOR WOUND CARE XX (06:30)
[2018-04-08] MEDS ORDERED: VANCOMYCIN IV PER PHARMACY XX (08:30)
[2018-04-08] MEDS: LEVOFLOXACIN 750MG/D5W (PMX) 150 ML IVPB (08:55)
[2018-04-08] MEDS: DEXTROSE 5%-0.45% NACL 1,000 ML IV ×2 (08:55→21:50)
[2018-04-08] MEDS ORDERED: LINACLOTIDE 72 MCG XX (09:00)
[2018-04-08] MEDS: PANTOPRAZOLE (EC) 40 MG TAB PO ×2 (09:00→18:00)
[2018-04-08] MEDS ORDERED: ONDANSETRON (ODT) 4 MG TAB ODT (09:00)
[2018-04-08] MEDS ORDERED: ALBUTEROL/IPRATROPIUM (NEB) 3 ML AMP HHN (09:00)
[2018-04-08] MEDS: PREGABALIN 25 MG CAP PO ×2 (12:18→20:31)
[2018-04-08] MEDS: DULOXETINE 30 MG CAP DR PO ×2 (12:18→20:31)
[2018-04-08] MEDS: traZODone 50 MG TAB PO ×2 (12:19→20:31)
[2018-04-08 12:32] LABS: IRON 49 ug/dl (35-150)
[2018-04-08 12:41] LABS: % IRON SATURATION 19 % SAT (22-52); TOTAL IRON BINDING CAPACITY 262 ug/dl (241-421)
[2018-04-08 13:13] LABS: FERRITIN 46.8 ng/ml (11.1-264.0)
[2018-04-08] MEDS: VANCOMYCIN 1.25 GM in SOD CHLORIDE 0.9% 250 ML IVPB (20:31)
[2018-04-09] MEDS: DEXTROSE 5%-0.45% NACL 1,000 ML IV (04:40)
[2018-04-09] MEDS: PANTOPRAZOLE (EC) 40 MG TAB PO ×2 (06:00→17:31)
[2018-04-09 06:08] LABS: ADD MAN DIFF? NO
[2018-04-09 06:11] LABS: WHITE BLOOD COUNT 7.6 10^3/ul (4.8-10.8)
[2018-04-09 06:11] LABS: BASOPHILS % 0.5 % (0.0-2.0); EOSINOPHILS # 0.3 10^3/ul (0.0-0.5); EOSINOPHILS % 4.2 % (0.0-7.0); HEMATOCRIT 32.5 % (42.0-52.0); HEMOGLOBIN 10.4 g/dl (14.0-18.0); LYMPHOCYTES # 1.5 10^3/ul (0.8-2.9); LYMPHOCYTES % 19.9 % (15.0-51.0); MEAN CORPUSCULAR HEMOGLOBIN 27.4 pg (29.0-33.0); MEAN CORPUSCULAR VOLUME 85.8 fl (82.0-101.0); MEAN PLATELET VOLUME 9.5 fl (7.4-10.4); MONOCYTE # 0.4 10^3/ul (0.3-0.9); MONOCYTES % 4.8 % (0.0-11.0); NEUTROPHIL # 5.4 10^3/ul (1.6-7.5); NEUTROPHILS % 70.1 % (39.0-77.0); PLATELET COUNT 255 10^3/UL (140-415); RED BLOOD COUNT 3.79 10^6/ul (4.70-6.10); RED CELL DISTRIBUTION WIDTH 18.6 % (11.5-14.5)
[2018-04-09 06:59] LABS: ANION GAP 9 (8-16); BLOOD UREA NITROGEN 17 mg/dl (7-20); CALCIUM 8.6 mg/dl (8.4-10.2); CARBON DIOXIDE 29 mmol/L (21-31); CHLORIDE 109 mmol/L (97-110); CREATININE 0.76 mg/dl (0.61-1.24); GLUCOSE 104 mg/dl (70-220); MAGNESIUM 1.9 mg/dl (1.7-2.5); PHOSPHORUS 3.5 mg/dl (2.5-4.9); POTASSIUM 3.8 mmol/L (3.5-5.1); SODIUM 143 mmol/L (135-144)
[2018-04-09] MEDS: traZODone 50 MG TAB PO ×2 (08:57→20:00)
[2018-04-09] MEDS: DULOXETINE 30 MG CAP DR PO ×2 (08:57→20:00)
[2018-04-09] MEDS: LEVOFLOXACIN 750MG/D5W (PMX) 150 ML IVPB (08:57)
[2018-04-09] MEDS: PREGABALIN 25 MG CAP PO ×3 (08:59→20:00)
[2018-04-09] MEDS: MUPIROCIN 2% 22 GM OINT TOP ×2 (10:37→20:01)
[2018-04-09] MEDS ORDERED: COLLAGENASE 5 GM (UD JAR) TOP (11:00)
[2018-04-09] MEDS: COLLAGENASE 5 GM (UD JAR) TOP (12:41)
[2018-04-09] MEDS: VANCOMYCIN 1.25 GM in SOD CHLORIDE 0.9% 250 ML IVPB (20:03)
[2018-04-09] MEDS: LORAZEPAM 0.5 MG TAB PO (21:38)
[2018-04-09] MEDS: HALOPERIDOL 5 MG INJ IM (23:38)
[2018-04-10] MEDS: PANTOPRAZOLE (EC) 40 MG TAB PO ×2 (06:12→16:53)
[2018-04-10] MEDS: COLLAGENASE 5 GM (UD JAR) TOP (07:52)
[2018-04-10] MEDS: traZODone 50 MG TAB PO ×2 (07:52→20:56)
[2018-04-10] MEDS: LEVOFLOXACIN 750MG/D5W (PMX) 150 ML IVPB (07:53)
[2018-04-10] MEDS: DULOXETINE 30 MG CAP DR PO ×2 (07:53→20:56)
[2018-04-10] MEDS: MUPIROCIN 2% 22 GM OINT TOP ×2 (07:53→20:57)
[2018-04-10] MEDS: PREGABALIN 25 MG CAP PO ×2 (07:53→20:56)
[2018-04-10 09:08] LABS: ADD MAN DIFF? NO
[2018-04-10 09:21] LABS: WHITE BLOOD COUNT 7.4 10^3/ul (4.8-10.8)
[2018-04-10 09:21] LABS: BASOPHILS % 0.5 % (0.0-2.0); EOSINOPHILS # 0.2 10^3/ul (0.0-0.5); EOSINOPHILS % 2.7 % (0.0-7.0); HEMATOCRIT 36.4 % (42.0-52.0); HEMOGLOBIN 11.2 g/dl (14.0-18.0); LYMPHOCYTES # 1.5 10^3/ul (0.8-2.9); LYMPHOCYTES % 20.4 % (15.0-51.0); MEAN CORPUSCULAR HEMOGLOBIN 26.5 pg (29.0-33.0); MEAN CORPUSCULAR HGB CONC 30.8 g/dl (32.0-37.0); MEAN CORPUSCULAR VOLUME 86.3 fl (82.0-101.0); MEAN PLATELET VOLUME 10.1 fl (7.4-10.4); MONOCYTE # 0.4 10^3/ul (0.3-0.9); MONOCYTES % 5.3 % (0.0-11.0); NEUTROPHIL # 5.2 10^3/ul (1.6-7.5); NEUTROPHILS % 70.7 % (39.0-77.0); PLATELET COUNT 248 10^3/UL (140-415); RED BLOOD COUNT 4.22 10^6/ul (4.70-6.10); RED CELL DISTRIBUTION WIDTH 18.9 % (11.5-14.5)
[2018-04-10 09:49] LABS: ANION GAP 13 (8-16); BLOOD UREA NITROGEN 22 mg/dl (7-20); CARBON DIOXIDE 27 mmol/L (21-31); CHLORIDE 109 mmol/L (97-110); CREATININE 0.86 mg/dl (0.61-1.24); GLUCOSE 73 mg/dl (70-220); MAGNESIUM 1.8 mg/dl (1.7-2.5); PHOSPHORUS 4.3 mg/dl (2.5-4.9); POTASSIUM 4.1 mmol/L (3.5-5.1); SODIUM 145 mmol/L (135-144)
[2018-04-10] MEDS ORDERED: PENDING SANTYL ORDER FOR WOUND CARE XX (11:30)
[2018-04-10] MEDS: SOD FERRIC GLUC COMPLX 125 MG in SOD CHLORIDE 0.9% 100 ML IVPB (15:31)
[2018-04-10] MEDS: VANCOMYCIN 1.25 GM in SOD CHLORIDE 0.9% 250 ML IVPB (20:59)
[2018-04-11] MEDS: PANTOPRAZOLE (EC) 40 MG TAB PO (05:06)
[2018-04-11] MEDS: DULOXETINE 30 MG CAP DR PO (07:53)
[2018-04-11] MEDS: PREGABALIN 25 MG CAP PO (07:53)
[2018-04-11] MEDS: traZODone 50 MG TAB PO (07:53)
[2018-04-11] MEDS: COLLAGENASE 5 GM (UD JAR) TOP (07:53)
[2018-04-11] MEDS: LEVOFLOXACIN 750MG/D5W (PMX) 150 ML IVPB (07:54)
[2018-04-11] MEDS: MUPIROCIN 2% 22 GM OINT TOP (07:54)
[2018-04-11] MEDS: POLYETHYLENE GLYCOL 17 GM PACKET PO (08:14)
[2018-04-11] MEDS: LUBIPROSTONE 24 MCG CAP PO (09:00)
[2018-04-30 14:03] LABS: PROCALCITONIN <0.10 ng/mL (<0.10)
== END 2018-04-11 12:30 | disposition home or self-care (01) | DRG 871 ==
LOC: TEL 04-08 03:37 → E/R 21:07 → TEL 04-08 06:13
DX: A41.9 Sepsis, unspecified organism (principal); L89.153 Pressure ulcer of sacral region, stage 3; L89.224 Pressure ulcer of left hip, stage 4; J69.0 Pneumonitis due to inhalation of food and vomit; J96.00 Acute respiratory failure, unspecified whether with hypoxia or hypercapnia; G92 Toxic encephalopathy; K50.90 Crohn's disease, unspecified, without complications; K92.0 Hematemesis; F03.90 Unspecified dementia, unspecified severity, without behavioral disturbance, psychotic disturbance, mood disturbance, and anxiety; D64.9 Anemia, unspecified; F32.9 Major depressive disorder, single episode, unspecified; I25.10 Atherosclerotic heart disease of native coronary artery without angina pectoris; G62.9 Polyneuropathy, unspecified; I48.91 Unspecified atrial fibrillation; R13.10 Dysphagia, unspecified; Z22.322 Carrier or suspected carrier of Methicillin resistant Staphylococcus aureus
CPT/HCPCS: 36415; 36600; 71045; 71250; 80048; 80053; 81003; 82728; 82803; 83540; 83605; 83690; 83735; 84100; 84145; 84484; 85025; 85610; 85730; 87040; 87081; 87086; 92526; 92610; 93005; 94664; 96374; 97162; 99291-25

== ENCOUNTER 2018-04-19 00:28 | Inpatient (IN) | payer MEDICARE, OTHER ==
[2018-04-19] MEDS: ONDANSETRON 4 MG INJ IV (01:15)
[2018-04-19 01:21] LABS: ADD MAN DIFF? NO
[2018-04-19 01:23] LABS: ABNORMAL IP MESSAGE 1; BASOPHILS % 0.4 % (0.0-2.0); EOSINOPHILS # 0.1 10^3/ul (0.0-0.5); HEMATOCRIT 34.5 % (42.0-52.0); HEMOGLOBIN 10.6 g/dl (14.0-18.0); LYMPHOCYTES # 0.8 10^3/ul (0.8-2.9); LYMPHOCYTES % 10.1 % (15.0-51.0); MEAN CORPUSCULAR HEMOGLOBIN 27.4 pg (29.0-33.0); MEAN CORPUSCULAR HGB CONC 30.7 g/dl (32.0-37.0); MEAN CORPUSCULAR VOLUME 89.1 fl (82.0-101.0); MONOCYTE # 0.2 10^3/ul (0.3-0.9); MONOCYTES % 2.4 % (0.0-11.0); NEUTROPHIL # 6.5 10^3/ul (1.6-7.5); NEUTROPHILS % 85.6 % (39.0-77.0); PLATELET COUNT 220 10^3/UL (140-415); POSITIVE DIFF @See below; RED BLOOD COUNT 3.87 10^6/ul (4.70-6.10); RED CELL DISTRIBUTION WIDTH 20.2 % (11.5-14.5)
[2018-04-19 01:23] LABS: WHITE BLOOD COUNT 7.6 10^3/ul (4.8-10.8)
[2018-04-19 01:28] LABS: AADO2 Arterial 600.4 mmHg (7.0-24.0); Arterial Base Excess 0.7 mmol/L (-3.0-3); Arterial Blood Gas Oxygen Sat 92.2 mmHG (95.0-100.0); Arterial COHb 0.1 % (0.0-3.0); Arterial Fraction of Oxyhgb 91.9 % (93.0-99.0); Arterial HCO3 26.3 mmol/L (22.0-26.0); Arterial MetHb 0.2 % (0.0-1.5); Arterial Total Hemglobin 11.2 g/dl (12.0-18.0); Arterial pCO2 46.3 mmhg (35-45); MODE MASK - NRB; Site Right Brachial
[2018-04-19 01:42] LABS: INR 1.14; PROTIME 14.8 Sec (11.9-14.9); PT RATIO 1.2
[2018-04-19 01:43] LABS: PARTIAL THROMBOPLASTIN TIME 30.5 Sec (25.0-35.0)
[2018-04-19] MEDS: SODIUM CHLORIDE 0.9% 1L BAG IV* (01:48)
[2018-04-19 01:57] LABS: LACTIC ACID 2.9 mmol/L (0.5-2.0)
[2018-04-19 01:58] LABS: ALANINE AMINOTRANSFERASE 22 IU/L (13-69); ALBUMIN 3.1 g/dl (3.3-4.9); ALBUMIN/GLOBULIN RATIO 0.93; ALKALINE PHOSPHATASE 95 IU/L (42-121); ANION GAP 12 (8-16); ASPARTATE AMINO TRANSFERASE 15 IU/L (15-46); BILIRUBIN,INDIRECT 0.6 mg/dl (0-1.1); BILIRUBIN,TOTAL 0.6 mg/dl (0.2-1.3); BLOOD UREA NITROGEN 49 mg/dl (7-20); CALCIUM 9.1 mg/dl (8.4-10.2); CARBON DIOXIDE 29 mmol/L (21-31); CHLORIDE 107 mmol/L (97-110); CREATININE 1.31 mg/dl (0.61-1.24); GLUCOSE 114 mg/dl (70-220); POTASSIUM 4.3 mmol/L (3.5-5.1); SODIUM 144 mmol/L (135-144); TOTAL PROTEIN 6.4 g/dl (6.1-8.1)
[2018-04-19 02:12] LABS: TROPONIN-I < 0.010 ng/ml (0.000-0.120)
[2018-04-19] MEDS: VANCOMYCIN 1 GM (PMX) 250 ML IVPB (02:30)
[2018-04-19] MEDS: LEVOFLOXACIN 750MG/D5W (PMX) 150 ML IVPB (03:25)
[2018-04-19 03:51] LABS: LACTIC ACID 2.1 mmol/L (0.5-2.0)
[2018-04-19] MEDS ORDERED: ONDANSETRON (ODT) 4 MG TAB ODT (09:00)
[2018-04-19] MEDS: SOD CHLORIDE 0.9% 1,000 ML IV ×2 (09:20→18:24)
[2018-04-19] MEDS: PANTOPRAZOLE (EC) 40 MG TAB PO (09:20)
[2018-04-19] MEDS: DULOXETINE 30 MG CAP DR PO ×2 (09:20→20:00)
[2018-04-19] MEDS: PREGABALIN 50 MG CAP PO ×2 (09:36→20:00)
[2018-04-19 10:05] LABS: LACTIC ACID 2.5 mmol/L (0.5-2.0)
[2018-04-19] MEDS: LORAZEPAM 0.5 MG TAB PO (15:09)
[2018-04-19] MEDS: MEROPENEM 500MG/50 ML (PMX) 50 ML IVPB (15:31)
[2018-04-19] MEDS: traZODone 50 MG TAB PO (20:00)
[2018-04-20] MEDS: SOD CHLORIDE 0.9% 1,000 ML IV (01:48)
[2018-04-20] MEDS: MEROPENEM 500MG/50 ML (PMX) 50 ML IVPB ×3 (01:48→21:20)
[2018-04-20] MEDS: PANTOPRAZOLE (EC) 40 MG TAB PO (05:35)
[2018-04-20 06:20] LABS: ADD MAN DIFF? NO
[2018-04-20 06:25] LABS: WHITE BLOOD COUNT 7.8 10^3/ul (4.8-10.8)
[2018-04-20 06:25] LABS: ABNORMAL IP MESSAGE 1; BASOPHILS % 0.3 % (0.0-2.0); EOSINOPHILS # 0.1 10^3/ul (0.0-0.5); EOSINOPHILS % 1.8 % (0.0-7.0); HEMATOCRIT 29.5 % (42.0-52.0); HEMOGLOBIN 9.2 g/dl (14.0-18.0); LYMPHOCYTES # 1.4 10^3/ul (0.8-2.9); LYMPHOCYTES % 18.3 % (15.0-51.0); MEAN CORPUSCULAR HEMOGLOBIN 27.2 pg (29.0-33.0); MEAN CORPUSCULAR HGB CONC 31.2 g/dl (32.0-37.0); MEAN CORPUSCULAR VOLUME 87.3 fl (82.0-101.0); MEAN PLATELET VOLUME 10.2 fl (7.4-10.4); MONOCYTE # 0.6 10^3/ul (0.3-0.9); MONOCYTES % 7.7 % (0.0-11.0); NEUTROPHIL # 5.6 10^3/ul (1.6-7.5); NEUTROPHILS % 71.3 % (39.0-77.0); PLATELET COUNT 211 10^3/UL (140-415); POSITIVE DIFF @See below; RED BLOOD COUNT 3.38 10^6/ul (4.70-6.10); RED CELL DISTRIBUTION WIDTH 20.2 % (11.5-14.5)
[2018-04-20 06:55] LABS: ANION GAP 8 (8-16); BLOOD UREA NITROGEN 46 mg/dl (7-20); CALCIUM 8.4 mg/dl (8.4-10.2); CARBON DIOXIDE 28 mmol/L (21-31); CHLORIDE 111 mmol/L (97-110); CREATININE 0.96 mg/dl (0.61-1.24); GLUCOSE 108 mg/dl (70-220); MAGNESIUM 1.9 mg/dl (1.7-2.5); PHOSPHORUS 3.5 mg/dl (2.5-4.9); SODIUM 143 mmol/L (135-144)
[2018-04-20] MEDS ORDERED: PROPOFOL 200 MG INJ (07:00)
[2018-04-20] MEDS: PREGABALIN 50 MG CAP PO ×2 (08:36→21:20)
[2018-04-20] MEDS: DULOXETINE 30 MG CAP DR PO ×2 (08:36→21:20)
[2018-04-20] MEDS: DEXTROSE 5%-0.45% NACL 1,000 ML IV ×2 (09:46→23:04)
[2018-04-20] MEDS: BISACODYL 10 MG SUPP PR (16:00)
[2018-04-20] MEDS: [UNRECOGNIZED DRUG - REMARK] XX (16:00)
[2018-04-20] MEDS: traZODone 50 MG TAB PO (21:20)
[2018-04-20] MEDS: LORAZEPAM 0.5 MG TAB PO (22:58)
[2018-04-20] MEDS: DOCUSATE SODIUM 10 MG/ML (10ML CUP) PO (22:58)
[2018-04-20] MEDS: POLYETHYLENE GLYCOL 17 GM PACKET PO (23:03)
[2018-04-21] MEDS: PANTOPRAZOLE (EC) 40 MG TAB PO (05:47)
[2018-04-21 06:49] LABS: ADD MAN DIFF? NO
[2018-04-21 06:50] LABS: WHITE BLOOD COUNT 8.7 10^3/ul (4.8-10.8)
[2018-04-21 06:50] LABS: BASOPHILS % 0.3 % (0.0-2.0); EOSINOPHILS # 0.2 10^3/ul (0.0-0.5); EOSINOPHILS % 2.1 % (0.0-7.0); HEMATOCRIT 30.8 % (42.0-52.0); HEMOGLOBIN 9.9 g/dl (14.0-18.0); LYMPHOCYTES # 1.7 10^3/ul (0.8-2.9); LYMPHOCYTES % 19.7 % (15.0-51.0); MEAN CORPUSCULAR HGB CONC 32.1 g/dl (32.0-37.0); MEAN CORPUSCULAR VOLUME 87.3 fl (82.0-101.0); MEAN PLATELET VOLUME 10.1 fl (7.4-10.4); MONOCYTE # 0.7 10^3/ul (0.3-0.9); MONOCYTES % 7.8 % (0.0-11.0); NEUTROPHILS % 69.3 % (39.0-77.0); PLATELET COUNT 218 10^3/UL (140-415); POSITIVE DIFF @See below; RED BLOOD COUNT 3.53 10^6/ul (4.70-6.10); RED CELL DISTRIBUTION WIDTH 19.2 % (11.5-14.5)
[2018-04-21 07:10] LABS: ANION GAP 8 (8-16); BLOOD UREA NITROGEN 42 mg/dl (7-20); CARBON DIOXIDE 26 mmol/L (21-31); CHLORIDE 111 mmol/L (97-110); CREATININE 0.73 mg/dl (0.61-1.24); GLUCOSE 112 mg/dl (70-220); MAGNESIUM 1.9 mg/dl (1.7-2.5); PHOSPHORUS 3.6 mg/dl (2.5-4.9); POTASSIUM 3.5 mmol/L (3.5-5.1); SODIUM 141 mmol/L (135-144)
[2018-04-21] MEDS: [UNRECOGNIZED DRUG - REMARK] XX ×3 (08:00→16:00)
[2018-04-21] MEDS: DULOXETINE 30 MG CAP DR PO ×2 (09:18→21:19)
[2018-04-21] MEDS: PREGABALIN 50 MG CAP PO ×2 (09:18→21:19)
[2018-04-21] MEDS: DOCUSATE SODIUM 10 MG/ML (10ML CUP) PO (09:19)
[2018-04-21] MEDS: NA PHOSPHATE/BIPHOS 133 ML ENEMA PR (09:19)
[2018-04-21] MEDS: POLYETHYLENE GLYCOL 17 GM PACKET PO (09:19)
[2018-04-21] MEDS: MEROPENEM 500MG/50 ML (PMX) 50 ML IVPB ×2 (09:19→21:18)
[2018-04-21] MEDS: ALBUTEROL/IPRATROPIUM (NEB) 3 ML AMP HHN ×4 (11:00→21:03)
[2018-04-21 11:08] LABS: LACTIC ACID 0.9 mmol/L (0.5-2.0)
[2018-04-21] MEDS: DEXTROSE 5%-0.45% NACL 1,000 ML IV (12:51)
[2018-04-21] MEDS: LUBIPROSTONE 24 MCG CAP PO ×2 (13:00→21:19)
[2018-04-21] MEDS: METHYLPREDNISOLONE 40 MG INJ IV ×2 (13:13→18:39)
[2018-04-21] MEDS: BISACODYL (EC) 5 MG TAB PO (13:13)
[2018-04-21] MEDS: traZODone 50 MG TAB PO (21:19)
[2018-04-22] MEDS: METHYLPREDNISOLONE 40 MG INJ IV ×4 (00:28→17:55)
[2018-04-22] MEDS: ALBUTEROL/IPRATROPIUM (NEB) 3 ML AMP HHN ×6 (00:59→21:53)
[2018-04-22] MEDS: PANTOPRAZOLE (EC) 40 MG TAB PO (05:45)
[2018-04-22 06:26] LABS: ADD MAN DIFF? NO
[2018-04-22 06:29] LABS: WHITE BLOOD COUNT 6.8 10^3/ul (4.8-10.8)
[2018-04-22 06:29] LABS: BASOPHILS % 0.3 % (0.0-2.0); HEMATOCRIT 29.2 % (42.0-52.0); HEMOGLOBIN 9.4 g/dl (14.0-18.0); LYMPHOCYTES # 1.2 10^3/ul (0.8-2.9); LYMPHOCYTES % 17.4 % (15.0-51.0); MEAN CORPUSCULAR HEMOGLOBIN 27.8 pg (29.0-33.0); MEAN CORPUSCULAR HGB CONC 32.2 g/dl (32.0-37.0); MEAN CORPUSCULAR VOLUME 86.4 fl (82.0-101.0); MEAN PLATELET VOLUME 10.3 fl (7.4-10.4); MONOCYTE # 0.2 10^3/ul (0.3-0.9); MONOCYTES % 2.5 % (0.0-11.0); NEUTROPHIL # 5.3 10^3/ul (1.6-7.5); PLATELET COUNT 222 10^3/UL (140-415); RED BLOOD COUNT 3.38 10^6/ul (4.70-6.10); RED CELL DISTRIBUTION WIDTH 19.2 % (11.5-14.5)
[2018-04-22 07:35] LABS: ANION GAP 9 (8-16); BLOOD UREA NITROGEN 32 mg/dl (7-20); CALCIUM 8.5 mg/dl (8.4-10.2); CARBON DIOXIDE 27 mmol/L (21-31); CHLORIDE 110 mmol/L (97-110); CREATININE 0.66 mg/dl (0.61-1.24); GLUCOSE 188 mg/dl (70-220); MAGNESIUM 2.1 mg/dl (1.7-2.5); POTASSIUM 3.5 mmol/L (3.5-5.1); SODIUM 142 mmol/L (135-144)
[2018-04-22] MEDS: [UNRECOGNIZED DRUG - REMARK] XX ×2 (08:00→16:00)
[2018-04-22] MEDS: MEROPENEM 500MG/50 ML (PMX) 50 ML IVPB ×2 (08:49→21:40)
[2018-04-22] MEDS: DOCUSATE SODIUM 10 MG/ML (10ML CUP) PO (10:11)
[2018-04-22] MEDS: PREGABALIN 50 MG CAP PO ×2 (10:12→21:40)
[2018-04-22] MEDS: DULOXETINE 30 MG CAP DR PO ×2 (10:12→21:40)
[2018-04-22] MEDS: LUBIPROSTONE 24 MCG CAP PO ×2 (10:12→21:40)
[2018-04-22] MEDS: POLYETHYLENE GLYCOL 17 GM PACKET PO (10:12)
[2018-04-22] MEDS: traZODone 50 MG TAB PO (21:40)
[2018-04-22] MEDS: DEXTROSE 5%-0.45% NACL 1,000 ML IV (21:42)
[2018-04-23] MEDS: METHYLPREDNISOLONE 40 MG INJ IV ×4 (00:31→18:37)
[2018-04-23] MEDS: ALBUTEROL/IPRATROPIUM (NEB) 3 ML AMP HHN ×6 (01:26→20:39)
[2018-04-23] MEDS: PANTOPRAZOLE (EC) 40 MG TAB PO (05:19)
[2018-04-23] MEDS: [UNRECOGNIZED DRUG - REMARK] XX ×3 (08:00→14:45)
[2018-04-23] MEDS: MEROPENEM 500MG/50 ML (PMX) 50 ML IVPB ×2 (09:45→20:36)
[2018-04-23] MEDS: LUBIPROSTONE 24 MCG CAP PO ×2 (09:46→21:00)
[2018-04-23] MEDS: DOCUSATE SODIUM 10 MG/ML (10ML CUP) PO (09:46)
[2018-04-23] MEDS: POLYETHYLENE GLYCOL 17 GM PACKET PO (09:46)
[2018-04-23] MEDS: DULOXETINE 30 MG CAP DR PO ×2 (09:48→21:00)
[2018-04-23] MEDS: PREGABALIN 50 MG CAP PO ×2 (10:01→21:00)
[2018-04-23] MEDS: DEXTROSE 5%-0.45% NACL 1,000 ML IV (20:08)
[2018-04-23] MEDS: PANTOPRAZOLE 40 MG INJ IV (20:27)
[2018-04-23] MEDS: ONDANSETRON 4 MG INJ IV (20:27)
[2018-04-23] MEDS: METOCLOPRAMIDE 10 MG INJ IV (20:27)
[2018-04-23] MEDS: LORAZEPAM 2 MG INJ IV (20:28)
[2018-04-23] MEDS: traZODone 50 MG TAB PO (21:00)
[2018-04-24] MEDS: ALBUTEROL/IPRATROPIUM (NEB) 3 ML AMP HHN ×6 (00:17→20:26)
[2018-04-24] MEDS: METOCLOPRAMIDE 10 MG INJ IV ×4 (01:31→18:06)
[2018-04-24] MEDS: METHYLPREDNISOLONE 40 MG INJ IV ×4 (01:31→18:06)
[2018-04-24 06:00] LABS: ADD MAN DIFF? NO
[2018-04-24 06:28] LABS: BASOPHILS % 0.3 % (0.0-2.0); HEMATOCRIT 26.8 % (42.0-52.0); HEMOGLOBIN 8.5 g/dl (14.0-18.0); LYMPHOCYTES # 1.9 10^3/ul (0.8-2.9); LYMPHOCYTES % 16.4 % (15.0-51.0); MEAN CORPUSCULAR HEMOGLOBIN 27.2 pg (29.0-33.0); MEAN CORPUSCULAR HGB CONC 31.7 g/dl (32.0-37.0); MEAN CORPUSCULAR VOLUME 85.9 fl (82.0-101.0); MEAN PLATELET VOLUME 10.5 fl (7.4-10.4); MONOCYTE # 0.8 10^3/ul (0.3-0.9); MONOCYTES % 6.4 % (0.0-11.0); NEUTROPHIL # 8.8 10^3/ul (1.6-7.5); NEUTROPHILS % 74.4 % (39.0-77.0); NUCLEATED RED BLOOD CELLS% 0.2 /100WBC (0.0-0.0); PLATELET COUNT 209 10^3/UL (140-415); RED BLOOD COUNT 3.12 10^6/ul (4.70-6.10); RED CELL DISTRIBUTION WIDTH 19.4 % (11.5-14.5)
[2018-04-24 06:28] LABS: WHITE BLOOD COUNT 11.8 10^3/ul (4.8-10.8)
[2018-04-24 06:38] LABS: ANION GAP 10 (8-16); BLOOD UREA NITROGEN 44 mg/dl (7-20); CALCIUM 8.1 mg/dl (8.4-10.2); CARBON DIOXIDE 28 mmol/L (21-31); CHLORIDE 109 mmol/L (97-110); CREATININE 0.81 mg/dl (0.61-1.24); GLUCOSE 130 mg/dl (70-220); MAGNESIUM 2.2 mg/dl (1.7-2.5); PHOSPHORUS 3.7 mg/dl (2.5-4.9); POTASSIUM 3.5 mmol/L (3.5-5.1); SODIUM 143 mmol/L (135-144)
[2018-04-24] MEDS: PANTOPRAZOLE 40 MG INJ IV ×2 (06:43→18:06)
[2018-04-24] MEDS: DOCUSATE SODIUM 10 MG/ML (10ML CUP) PO (08:32)
[2018-04-24] MEDS: DULOXETINE 30 MG CAP DR PO ×2 (08:33→20:10)
[2018-04-24] MEDS: PREGABALIN 50 MG CAP PO ×2 (08:33→20:10)
[2018-04-24] MEDS: LUBIPROSTONE 24 MCG CAP PO ×2 (08:33→20:10)
[2018-04-24] MEDS: POLYETHYLENE GLYCOL 17 GM PACKET PO (08:33)
[2018-04-24] MEDS: MEROPENEM 500MG/50 ML (PMX) 50 ML IVPB ×2 (08:39→20:11)
[2018-04-24] MEDS: ONDANSETRON 4 MG INJ IV ×2 (08:39→20:06)
[2018-04-24] MEDS: DEXTROSE 5%-0.45% NACL 1,000 ML IV (20:10)
[2018-04-24] MEDS: traZODone 50 MG TAB PO (20:10)
[2018-04-24] MEDS: LORAZEPAM 0.5 MG TAB PO (20:28)
[2018-04-25] MEDS: METOCLOPRAMIDE 10 MG INJ IV ×4 (00:37→17:08)
[2018-04-25] MEDS: METHYLPREDNISOLONE 40 MG INJ IV ×4 (00:37→17:09)
[2018-04-25] MEDS: ALBUTEROL/IPRATROPIUM (NEB) 3 ML AMP HHN ×5 (00:44→16:33)
[2018-04-25] MEDS: ONDANSETRON 4 MG INJ IV (04:32)
[2018-04-25] MEDS: PANTOPRAZOLE 40 MG INJ IV ×2 (05:52→17:09)
[2018-04-25 06:19] LABS: HEMATOCRIT 30.6 % (42.0-52.0); HEMOGLOBIN 9.9 g/dl (14.0-18.0); MEAN CORPUSCULAR HEMOGLOBIN 27.8 pg (29.0-33.0); MEAN CORPUSCULAR HGB CONC 32.4 g/dl (32.0-37.0); MEAN PLATELET VOLUME 10.3 fl (7.4-10.4); NUCLEATED RED BLOOD CELLS% 0.1 /100WBC (0.0-0.0); PLATELET COUNT 300 10^3/UL (140-415); POSITIVE DIFF @See below; RED BLOOD COUNT 3.56 10^6/ul (4.70-6.10); RED CELL DISTRIBUTION WIDTH 19.3 % (11.5-14.5)
[2018-04-25 06:19] LABS: WHITE BLOOD COUNT 20.6 10^3/ul (4.8-10.8)
[2018-04-25 06:28] LABS: ADD MAN DIFF? YES
[2018-04-25 07:46] LABS: ANION GAP 9 (8-16); BLOOD UREA NITROGEN 38 mg/dl (7-20); CALCIUM 8.2 mg/dl (8.4-10.2); CARBON DIOXIDE 28 mmol/L (21-31); CHLORIDE 106 mmol/L (97-110); CREATININE 0.77 mg/dl (0.61-1.24); GLUCOSE 195 mg/dl (70-220); MAGNESIUM 2.1 mg/dl (1.7-2.5); PHOSPHORUS 3.7 mg/dl (2.5-4.9); POTASSIUM 4.3 mmol/L (3.5-5.1); SODIUM 139 mmol/L (135-144)
[2018-04-25 08:25] LABS: ANISOCYTOSIS 1+ (0-0); BAND NEUTROPHILS #M 5.3 10^3/ul (0.0-0.6); BAND NEUTROPHILS % (M) 26 % (0-4); LYMPHOCYTES #M 1.2 10^3/ul (0.8-2.9); LYMPHOCYTES % (M) 6 % (15-51); MONOCYTE #M 0.2 10^3/ul (0.3-0.9); MONOCYTES % (M) 1 % (0-11); MYELOCYTES #M 0.2 10^3/ul (0.0-0.0); MYELOCYTES % (M) 1 % (0-0); PLATELET ESTIMATE NORMAL; POLYCHROMASIA 1+ (0-0); SEG NEUT #M 14.7 10^3/ul (1.6-7.5); SEGMENTED NEUTROPHILS (M) % 66 % (39-77); SMUDGE%M 10 % (0-0)
[2018-04-25] MEDS: POLYETHYLENE GLYCOL 17 GM PACKET PO (09:08)
[2018-04-25] MEDS: DOCUSATE SODIUM 10 MG/ML (10ML CUP) PO (09:08)
[2018-04-25] MEDS: PREGABALIN 50 MG CAP PO (09:09)
[2018-04-25] MEDS: LUBIPROSTONE 24 MCG CAP PO (09:09)
[2018-04-25] MEDS: DULOXETINE 30 MG CAP DR PO (09:09)
[2018-04-25] MEDS: LORAZEPAM 0.5 MG TAB PO (09:09)
[2018-04-25] MEDS: COLLAGENASE 5 GM (UD JAR) TOP (09:10)
[2018-04-25] MEDS: MEROPENEM 500MG/50 ML (PMX) 50 ML IVPB (09:16)
[2018-04-25] MEDS: ERTAPENEM SODIUM 1 GM in SOD CHLORIDE 0.9% 100 ML IVPB (12:19)
== END 2018-04-25 18:47 | disposition home or self-care (01) | DRG 871 ==
LOC: E/R 00:28 → 6WM 02:19
PROC: 0DB58ZX Excision of Esophagus, Via Natural or Artificial Opening Endoscopic, Diagnostic (ICD-10-PCS; principal; 2018-04-20 11:10)
PROC: 0DB68ZX Excision of Stomach, Via Natural or Artificial Opening Endoscopic, Diagnostic (ICD-10-PCS; 2018-04-20 11:10)
DX: A41.9 Sepsis, unspecified organism (principal); L89.154 Pressure ulcer of sacral region, stage 4; J69.0 Pneumonitis due to inhalation of food and vomit; J96.00 Acute respiratory failure, unspecified whether with hypoxia or hypercapnia; G92 Toxic encephalopathy; K92.2 Gastrointestinal hemorrhage, unspecified; N17.9 Acute kidney failure, unspecified; K50.90 Crohn's disease, unspecified, without complications; K92.0 Hematemesis; E87.1 Hypo-osmolality and hyponatremia; D64.9 Anemia, unspecified; F32.9 Major depressive disorder, single episode, unspecified; F03.90 Unspecified dementia, unspecified severity, without behavioral disturbance, psychotic disturbance, mood disturbance, and anxiety; I25.10 Atherosclerotic heart disease of native coronary artery without angina pectoris; G62.9 Polyneuropathy, unspecified; K59.00 Constipation, unspecified; K22.70 Barrett's esophagus without dysplasia; K44.9 Diaphragmatic hernia without obstruction or gangrene; K29.70 Gastritis, unspecified, without bleeding; R13.10 Dysphagia, unspecified; J44.9 Chronic obstructive pulmonary disease, unspecified; I10 Essential (primary) hypertension; R65.20 Severe sepsis without septic shock; R13.19 Other dysphagia
CPT/HCPCS: 36415; 36600; 71045; 80048; 80053; 82803; 83605; 83735; 84100; 84484; 85025; 85610; 85730; 87040; 88305; 88312; 88313; 92526; 92610; 93005; 94640; 94660; 94664; 96374; 99291-25